=== PATIENT | female | born 1960 | race Caucasian/White ===

== ENCOUNTER 2020-06-18 01:16 | Outpatient (CLI) | payer BC, SELFPAY ==
--- NOTE | 2020-06-18 08:30 | DI.MAMMO_ITS ---
EXAM: MG MAMMO SCREENING CLINICAL HISTORY: screening TECHNIQUE: Bilateral full field digital CC and MLO mammographic images were obtained with 3D tomosyn thesis and utilizing computer aided detection (CAD). COMPARISON: Available for comparison. FINDINGS: Masses/Architectural Distortion: None seen. Microcalcifications: No suspicious pleomorphic-type are seen. Skin Thickening/Nipple Retraction: None. IMPRESSION: 1. No significant interval change with no specific features of malignancy noted. 2. Unless there is more urgent need, screening mammography is recommended, as per [employer] guidelines. BI-RADS Category 1 - Negative Breast Density - Category B - Scattered areas of fibroglandular density A negative radiographic report should not delay biopsy if a dominant or clinically suspicious mass is present. Up to ten percent of cancers are not identified on mammography. A negative report may reinforce clinical impression. Adenosis and dense breasts may obscure an underlying neoplasm. False positive reports average 6 to 10%. Patient will receive a letter notifying them of these results.
== END 2020-06-18 01:36 ==
PROVIDERS: PCP Family Medicine; Visit Provider Nurse Practitioner Family
DX: Z12.31 Encounter for screening mammogram for malignant neoplasm of breast (principal)
CPT/HCPCS: 77063; 77067

== ENCOUNTER 2021-05-28 11:55 | Outpatient (REF) | payer BC, SELFPAY ==
--- NOTE | 2021-05-28 10:15 | PAPFT_PTH ---
PATIENT: Bette Muro LOC: [facility] U#:[id number] AGE/SX: 60/F ROOM: RE05/28/[address]: REX Méndez : 1960 BED: DIS: 05/28/2021 SPEC #: [id number] RECD: 05/28/21 12:49 STATUS: URIAH REQ #: [id number] MICHAEL: 05/28/21 10:[address]: Heavenly Reeder DEPT: [facility] Cytology RECD BY: Tia Rausch ENTERED: 05/28/21 12:50 SP TYPE: PAPFT OTHR DR: Ed Akins Tissues: 1 - CX/ENDOCX FOR PAP SMEARS Procedures: PAP THIN PREP/UVM Screening HPV DNA PROBE Comments: [id number]
== END 2021-05-28 11:56 | disposition home or self-care (01) ==
LOC: LBN 11:55
PROVIDERS: PCP Family Medicine; Visit Provider Nurse Practitioner Family
DX: Z12.4 Encounter for screening for malignant neoplasm of cervix (principal); Z11.51 Encounter for screening for human papillomavirus (HPV)
CPT/HCPCS: 88142; 87624

== ENCOUNTER 2021-06-22 00:49 | Outpatient (CLI) | payer BC, SELFPAY ==
--- NOTE | 2021-06-22 12:00 | DI.MAMMO_ITS ---
Exam(s) MAMMO SCREENING EXAM: MAMMO SCREENING CLINICAL HISTORY: screening TECHNIQUE: Mammograms were interpreted according to the usual protocol including computer analysis w [employer] CAD system, tomosynthesis and C-view imaging. COMPARISON: FINDINGS: The breasts are of moderate density with fairly symmetrical distribution of fibroglandular tissue. N o dominant mass or clumped microcalcification is identified in either breast. The current examinatio n is compared with previous examinations including May 2020 and there has been no gross interval change in appearance in comparison with the prior studies. IMPRESSION: No specific evidence of malignancy at this time. Routine screening examinations are suggested at yea rly intervals in this age group according to the ACS ACR guidelines. BI-RADS Category 1 - Negative Breast Density - Category B - Scattered areas of fibroglandular density
== END 2021-06-22 01:09 ==
PROVIDERS: PCP Family Medicine; Visit Provider Nurse Practitioner Family
DX: Z12.31 Encounter for screening mammogram for malignant neoplasm of breast (principal)
CPT/HCPCS: 77063; 77067

== ENCOUNTER 2021-10-06 04:28 | Outpatient (CLI) | payer BC, SELFPAY ==
[2021-10-06 12:17] LABS: Hemoglobin A1C 5.5 % (<5.7)
[2021-10-06 12:56] LABS: TSH 2.69 uIU/mL (0.36-3.74)
== END 2021-10-06 04:29 | disposition home or self-care (01) ==
LOC: LBO 04:28
PROVIDERS: PCP Nurse Practitioner Family; Visit Provider Nurse Practitioner Family
DX: Z13.1 Encounter for screening for diabetes mellitus (principal); Z13.29 Encounter for screening for other suspected endocrine disorder
CPT/HCPCS: 36415; 83036; 84443

== ENCOUNTER 2022-08-03 03:37 | Outpatient (CLI) | payer BC, SELFPAY ==
--- NOTE | 2022-08-03 08:15 | DI.MAMMO_ITS ---
Exam(s) MAMMO SCREENING EXAM: MAMMO SCREENING CLINICAL HISTORY: screening,Z12.39 TECHNIQUE: Mammograms were interpreted according to the usual protocol including computer analysis w [employer] CAD system, tomosynthesis and C-view imaging. COMPARISON: 2012 through 2020 FINDINGS: The breasts are composed of scattered fibroglandular densities, Breast Density category B. No suspicious masses or suspicious microcalcifications are seen. No skin thickening or abnormal axillary lymph nodes are seen. There has been no significant change from prior exams. IMPRESSION: BI-RADS Category 1, Negative mammogram Yearly screening mammography is recommended. Breast Density - Category B, scattered fibroglandular densities. A negative radiographic report should not delay biopsy if a dominant or clinically suspicious mass is present. Up to ten percent of cancers are not identified on mammography. A negative report may reinforce clinical impression. Adenosis and dense breasts may obscure an underlying neoplasm. False positive reports average 6 to 10%. Patient will receive a letter notifying them of these results.
== END 2022-08-03 03:57 ==
LOC: DI 03:37
PROVIDERS: PCP Nurse Practitioner Family; Visit Provider Nurse Practitioner Women's Health
DX: Z12.31 Encounter for screening mammogram for malignant neoplasm of breast (principal)
CPT/HCPCS: 77063; 77067

== ENCOUNTER 2023-05-03 08:11 | Observation (INO) | payer BC, SELFPAY ==
[2023-05-03] VITALS (36 sets, daily range): BP systolic 92–122; BP diastolic 41–64; PULSE 64–79; RESP 11–21; TEMP 36.7–37.4; O2SAT 94–100; BMI 19.8
--- NOTE | 2023-05-03 08:15 | DI.CT_ITS ---
Exam(s) CT ABDOMEN PELVIS W EXAM: CT ABDOMEN PELVIS W CLINICAL HISTORY: RLQ abd Pain. TECHNIQUE: Imaging Protocol: Axial computed tomography images with coronal and sagittal reformatted images were created and reviewed CONTRAST MATERIAL: Intravenous: Omnipaque-350 100cc Oral: None COMPARISON: No exams were available for comparison FINDINGS: VISUALIZED LUNG BASES: No nodules nor pleural effusions evident. Increased markings in the right natalya g base within the posterior basal segment of the right lower lobe. ABDOMEN: LIVER: There are 2 cysts in the right hepatic lobe and 1 in the left lobe. The largest is in the lef t lobe and measures 1.6 x 1 cm. No dilated intrahepatic ducts. No steatosis. GALLBLADDER/BILIARY: No obvious gallbladder pathology. CBD is not dilated. PANCREAS: No evidence of pancreatic mass nor dilatation of the pancreatic duct. SPLEEN: Spleen is not enlarged. No obvious intrasplenic lesions. Splenic and portal veins are paten t. ADRENALS: There are no significant adrenal masses. KIDNEYS:No cysts evident. No solid renal masses. No calculi nor hydronephrosis.. ABDOMINAL AORTA: Abdominal aorta is not enlarged. LYMPH NODES:There is no retroperitoneal nor paraaortic adenopathy. ABDOMINAL WALL: No evidence of significant anterior abdominal wall nor inguinal hernia. PELVIS: GI: The appendix is grossly abnormal. There is an appendicular lith at the junction of the appendix and tip of the cecum and the appendix is fluid-filled and dilated to 1.5 cm with abundant surrounding CIS fat streaking and some adjacent fluid as well as some fluid in the dependent aspect of the pelvi s. There is no formed abscess at this time. No free air. No gas in the portal venous system.There is no significant sigmoid diverticular disease. LYMPH NODES: There is no intrapelvic nor inguinal adenopathy. REPRODUCTIVE: There are multiple dilated veins on both sides of the uterus which drain into prominent gonadal veins pelvic congestion syndrome. The gonadal veins are not thrombosed. Dilated left gonad al vein drains into the left renal vein. There is no thrombosis of the left renal vein. URINARY BLADDER: Uniformly thickened wall but bladder is collapsed and this may be exaggerated. OSSEOUS: No fractures and no significant osseous lesions. IMPRESSION: 1. Findings are consistent with severe acute appendicitis, as described above. There is high risk fo r and rupture of the inflamed appendix here. 2. Incidentally noted is pelvic congestion syndrome with dilated veins on both sides of the uterus, t hese draining into prominent nonthrombosed gonadal veins. 3. Benign appendix cysts noted. No evidence of hepatic abscess. 4. There is some ascites in the pelvis which is related to the acute appendicitis. Report called by myself to ER provider. RADIATION DOSE DELIVERED: 553.8mGy.cm Total DLP DATA REPOSITORY: All CT scans at this facility are submitted to the National Radiology Data Registry (NRDR) Dose Index Registry (DIR) with the [employer] (ACR). RADIATION OPTIMIZATION: All CT scans at this facility use at least one of these dose optimization te chniques: automated exposure control; mA and/or kV adjustment per patient size (includes targeted exa ms where dose is matched to clinical indication); or iterative reconstruction.
--- NOTE | 2023-05-03 08:27 | ED.GENADUL_ITS ---
Discharge Plan Disposition Patient Disposition: Admit to [facility] Condition: Stable Discharge Details Clinical Impression: Acute appendicitis Attending Provider: Cat Stanton Primary Care Provider: Shabbir Nash ED Provider: Stephany Buenrostro Discharge Data Discharge Date/Time-TO BE ENTERED AT DEPARTURE: 05/03/23 11:49 Medical Decision Making 62-year-old female presents to the ER with a chief complaint of right lower quadrant abdominal pain associated with nausea vomiting and diarrhea which began yesterday. She reports feeling nauseous and continued right lower quadrant pain throughout the day. Nausea seems to be resolved at this time however she is still having some pain. No history of abdominal surgeries. She also notes bloating chills and dizziness. Work-up ordered including CBC CMP lipase UA CT abdomen pelvis. Differential diagnosis includes but limited to appendicitis, ovarian cyst, bowel obstruction, gastroenteritis, UTI. Blood cell count shows elevation leukocytosis 18.68, neutrophils 15.34, sodium i s 130 chloride 96 glucose 140 urinalysis shows 40 ketones small bilirubin 3-5 RBCs. Received call from radiologist CT positive for acute appendicitis appendix is measuring 1.5 cm with free fluid in the cul-de-sac. 0940: Surgery paged. 0949: Spoke with Dr. Stanton, will accept her for surgery. Patient transferred to OR. This text was generated using [employer] dictation system, please disregard any oddities of phrase or misspellings. Medical Records Medical records reviewed: Yes I reviewed the patient's medical records. Imaging Data Radiologic Study: Imaging: CT Scan Radiologist's impression: EXAM: ? CT ABDOMEN ? PELVIS W CLINICAL HISTORY: ? RLQ abd Pain. ? TECHNIQUE:? Imaging Protocol: Axial computed tomography images with coronal and sagittal reformatted images were created and reviewed CONTRAST MATERIAL:? Intravenous: Omnipaque-350? 100cc Oral: None COMPARISON:? No exams were available for comparison FINDINGS: VISUALIZED LUNG BASES: No nodules nor pleural effusions evident.? Increased jessica ings in the right lung base within the posterior basal segment of the right lower lobe. ABDOMEN: LIVER: There are 2 cysts in the right hepatic lobe and 1 in the left lobe.? The largest is in the left lobe and measures 1.6 x 1 cm.? No dilated intrahepatic ducts.? No steatosis. GALLBLADDER/BILIARY: No obvious gallbladder pathology.? CBD is not dilated. PANCREAS: No evidence of pancreatic mass nor dilatation of the pancreatic duct.? SPLEEN: Spleen is not enlarged.? No obvious intrasplenic lesions.? Splenic and portal veins are patent. ADRENALS: There are no significant adrenal masses. KIDNEYS:No cysts evident.? No solid renal masses.? No calculi nor hydronephrosis.. ABDOMINAL AORTA: Abdominal aorta is not enlarged. LYMPH NODES:There is no retroperitoneal nor paraaortic adenopathy. ABDOMINAL WALL: No evidence of significant anterior abdominal wall nor inguinal hernia. PELVIS:? GI: The appendix is grossly abnormal.? There is an appendicular lith at the junction of the appendix and tip of the cecum and the appendix is fluid-filled and dilated to 1.5 cm with abundant surrounding CIS fat streaking and some adjacent fluid as well as some fluid in the dependent aspect of the pelvis.? There is no formed abscess at this time.? No free air.? No gas in the portal venous system.There is no significant sigmoid diverticular disease. LYMPH NODES: There is no intrapelvic nor inguinal adenopathy. REPRODUCTIVE: There are multiple dilated veins on both sides of the uterus which drain into prominent gonadal veins pelvic congestion syndrome.? The gonadal veins are not thrombosed.? Dilated left gonadal vein drains into the left renal vein.? There is no thrombosis of the left renal vein. URINARY BLADDER: Uniformly thickened wall but bladder is collapsed and this may be exaggerated. OSSEOUS: No fractures and no significant osseous lesions. IMPRESSION: 1. Findings are consistent with severe acute appendicitis, as described above.? There is high risk for and rupture of the inflamed appendix here. 2. Incidentally noted is pelvic congestion syndrome with dilated veins on both sides of the uterus, these draining into prominent nonthrombosed gonadal veins. 3. Benign appendix cysts noted.? No evidence of hepatic abscess. 4. There is some ascites in the pelvis which is related to the acute appendicitis. Lab Data Lab results reviewed: Yes I reviewed the patient's lab results. Labs: Laboratory Tests Range/Units 05/03/23 05/03/23 05/03/23 08:25 08:25 08:29 WBC (4.4-10.8) 10^3/uL 18.68 H RBC (3.93-5.22) 10^6/uL 4.14 Hgb (11.2-15.7) g/dL 13.3 Hct (36.0-46.0) % 38.0 MCV (80-95) fL 92 MCH (27.0-33.0) pg 32.1 MCHC (32.0-36.0) % 35.0 RDW (11.7-14.6) % 12.4 Plt Count (130-400) 10^3/uL 324 MPV (8.0-11.0) fL 9.1 Immature Gran % 0.5 Neutrophils % 82.1 Lymphocytes % 7.0 Monocytes % 10.1 Eosinophils % 0.0 Basophils % 0.3 Nucleated RBC % (0.0-0.3) % 0.0 Absolute Neutrophils (1.2-6.7) 10^3/uL 15.34 H Absolute Lymphocytes (1.2-3.4) 10^3/uL 1.31 Absolute Monocytes (0.1-0.8) 10^3/uL 1.89 H Absolute Eosinophils (0.0-0.7) 10^3/uL 0.00 Absolute Basophils (0.0-0.2) 10^3/uL 0.06 RBC Morphology Normal Sodium (136-145) mmol/L 130 L Potassium (3.5-5.1) mmol/L 3.8 Chloride (98-107) mmol/L 96 L Carbon Dioxide (21.0-32.0) mmol/L 25.0 Anion Gap (3-11) mmol/L 9.0 BUN (7-18) mg/dL 11 Creatinine (0.55-1.02) mg/dL 0.7 Est GFR (CKD-EPI 2020) (mL/min/1.73m2) 97.72 Glucose (74-106) mg/dL 140 H Calcium (8.5-10.1) mg/dL 9.3 Magnesium (1.8-2.4) mg/dL 1.8 Total Bilirubin (0.2-1.0) mg/dL 0.9 AST (15-37) U/L 22 ALT (14-59) U/L 27 Alkaline Phosphatase (46-116) U/L 76 Total Protein (6.4-8.2) g/dL 7.5 Albumin (3.4-5.0) g/dL 3.6 Lipase (16-77) U/L 29 Urine Color (Yellow) Yellow Urine Clarity (Clear) Clear Urine pH (5-8) 6.5 Ur Specific Allyn (1.005-1.025) >= 1.030 H Urine Protein (Negative) mg/dL 100 H Urine Ketones (Negative) mg/dL 40 H Urine Blood (Negative) Small H Urine Nitrite (Negative) Negative Urine Bilirubin (Negative) Small H Urine Urobilinogen (Up to 0.2) mg/dL 0.2 Ur Leukocyte Esterase (Negative) Negative Urine RBC (0-2) HPF 3-5 H Urine WBC (0-5) HPF 0-2 Ur Epithelial Cells (Negative) HPF Rare Urine Crystals (Negative) HPF Few Amorphous Urine Bacteria (Negative) HPF Negative Urine Casts (Negative) LPF Negative Urine Mucus (Negative) Trace Ur Culture Indicated? No Urine Glucose (Negative) mg/dL Negative HPI General Mode of arrival: ambulatory . Date/Time Provider Initiated Documentation: 05/03/23 08:16 . Limitations to Documentation: no limitations . Information obtained by: patient, RN notes reviewed and old records reviewed . HPI Narrative: 62-year-old female presents to the ER with a chief complaint of right lower quadrant abdominal pain associated with nausea vomiting and diarrhea which began yesterday. She reports feeling nauseous and continued right lower quadrant pain throughout the day. Nausea seems to be resolved at this time however she is still having some pain. No history of abdominal surgeries. She also notes bloating chills and dizziness. Related Data Home Medications Medication Instructions Recorded Confirmed calcium carb,cit 300 mg-D3 200 1 ea PO DAILY 01/18/16 05/03/23 unit-min no.34-genistein 13.5 mg tablet (Citracal Plus Bone Density Builder) cholecalciferol (vitamin D3) 50 2,000 unit PO DAILY 01/18/16 05/03/23 mcg (2,000 unit) capsule (Vitamin D3) flaxseed oil 1,000 mg capsule 1,000 mg PO DAILY 01/18/16 05/03/23 multivitamin (Daily Multi-Vitamin 1 ea PO DAILY 01/18/16 05/03/23 tablet) wheat dextrin 3 gram/3.8 gram oral 236 g PO DAILY 01/23/17 05/03/23 powder (Benefiber Sugar Free (dextrin)) glucosamine sulfate 1,000 mg 1,000 mg PO DAILY 05/26/20 05/03/23 capsule epinephrine 0.3 mg/0.3 mL 0.3 mg IM ONCE 09/22/21 05/03/23 injection, auto-injector (EpiPen 2-Carlin) Allergies Allergy/AdvReac Type Severity Reaction Status Date / Time Duck Eggs Allergy Severe Wheezing Uncoded 05/03/23 08:20 General Stated Complaint: Abd Prob ADAMA: 3 Review of Systems All systems reviewed & are unremarkable except as noted in HPI and below Gastrointestinal Gastrointestinal: Reports abdominal pain, Reports bloating, Reports diarrhea, Reports nausea and Reports vomiting Genitourinary Genitourinary: Denies difficulty voiding PFSH All Active Problems (Updated 05/03/23 @ 09:50 by Stephany Buenrostro NP) Acute appendicitis (Acute) Postmenopausal (Acute) Basal cell carcinoma of skin (Acute) left shoulder Medical History Cervical polyp (01/26/18) seasonal affective disorder usually winter months. Rx over winter x 1 no issues at this time Surgical History History of tubal ligation (~07/31/94) Family History Mother , 83 Osteoporosis Lung cancer Father , 68 Diabetes Heart disease Hyperlipidemia Hypertension Stroke Substance use disorder Sister Alcohol use disorder Sister Diabetes Brother Alcohol use disorder Brother No problems noted. Brother Alcohol use disorder Depression Brother Heart disease Diabetes Depression Son Hypoglycemia Daughter Depression Social History Smoking/Tobacco Use Status: Never Second Hand Exposure: Yes Smoking risk assessment performed?: Yes Alcohol Intake: current Alcohol Intake frequency: a few times a week Alcohol type: beer and wine Substance use type: does not use Caregiver/Support person: No Household members: significant other Housing: apartment Communication Needs: Corrective Lenses Do you need help understanding health information?: Rarely Pets and animals: Yes Pets and animals: cat(s) Sexually active: Yes Do you think of yourself as: straight/heterosexual Current gender identity: female What is your relationship status?: living with partner How often do you talk on the phone with friends or family?: three or more times per week How often do you get together with friends or relatives?: three or more times per week How often do you attend mandaen or anglican services?: 1-3 times per year Do you belong to any clubs or organized social groups?: yes Panel score (0-1 are the most socially isolated patients): 3 What type of physical activity do you participate in: walking, weight lifting and running Duration: 60-90 minutes/day Frequency: 3-4 times per week Victorina/Jehovah'S Witness: Spiritual Special victorina needs: No Seatbelt use: always Helmet use: Yes Helmet use: always Drive intox or ride w/intox experienced truck driver: No Do you feel safe at home: Yes Do you feel safe in your relationship?: Yes Female Reproductive History Menstrual Menopause type: natural (2018) History History 2 Para 2 Hx # Term Pregnancies Multiple births Hx # Pregnancies Ectopic pregnancies AB induced Hx Number of Living Children AB spontaneous Exam Narrative Exam Narrative: Constitutional: Alert and oriented x3. Appears stated age. Normal body habitus. Head: Normocephalic, no trauma. Eyes: Pupils PERRL, Red reflex noted, EOM's intact. Eyelids symmetrical without lesions, discharge, or swelling. ENT: Bilateral TM's WNL, External ear normal to inspection, no mastoid TTP, swelling, or erythema, Nasal turbinates WNL, no nasal discharge. Normal dentition, Posterior pharynx WNL, no exudate. Chest: RRR, Normal S1, S2, distal pulses intact. Resp: Lungs clear to auscultation bilaterally, no wheezes, rales, or rhonchi. Abdomen: Soft, non-distended, Normoactive bowel sounds all 4 quads. Tenderness right lower quadrant with palpation. Musculoskeletal: Normal gait, 5/5 strength to all four extremities. Skin: No suspicious rashes or lesions. Capillary refill less than 2 sec. Neurologic: Cranial nerves II-XII intact. Alert and oriented x 3. Motor: No defi cits noted. Sensory: Intact bilaterally all 4 extremities. Hematologic/Lymphatic: No ecchymosis, no lymphadenopathy. Course Vital Signs Vital signs: Vital Signs Temperature 37.3 C 05/03/23 08:14 Pulse 68 05/03/23 08:14 Respiratory Rate 16 05/03/23 08:14 Blood Pressure 122/53 L 05/03/23 08:14 Pulse Oximetry 99 05/03/23 08:14 Temperature 37.3 C 05/03/23 08:14 Temperature Source Oral 05/03/23 08:14 Pulse 68 05/03/23 08:14 Respiratory Rate 16 05/03/23 08:14 Respiratory Effort Normal, Non-Labored 05/03/23 08:17 Blood Pressure 122/53 L 05/03/23 08:14 Pulse Oximetry 99 05/03/23 08:14 Oxygen Delivery Method Room Air 05/03/23 08:14 Oxygen Flow Rate 0 05/03/23 08:14 Pain Level 4 05/03/23 08:14 PAWSS Have you Been Recently Intoxicated or Drunk Within the Last 30 days?: No Have you Ever Experienced Previous Episodes of Alcohol Withdrawal?: No Have you ever Experienced Withdrawal Seizures?: No Have you ever Experienced Delirium Tremens(DT)s?: No Have you ever undergone Alcohol Rehabilitation Treatment (i.e, inpt ot outpatient treatment programs)?: No Have you ever Experienced Blackouts?: No Have you ever Combined Alcohol with other Downers within the last 90 days?: No Have you ever Combined Alcohol with any other Substance of Abuse during the last 90 days?: No Result: 0
[2023-05-03 08:35] LABS: Abs Immature Grans 0.09 10^3/uL (0.0-0.06); Basophils % 0.3; HGB 13.3 g/dL (11.2-15.7); Immature Grans % 0.5; MCH 32.1 pg (27.0-33.0); MCV 92 fL (80-95); MPV 9.1 fL (8.0-11.0); Monocytes % 10.1; Neutrophils % 82.1; Platelet Count 324 10^3/uL (130-400); RBC 4.14 10^6/uL (3.93-5.22); RDW 12.4 % (11.7-14.6); WBC 18.68 10^3/uL (4.4-10.8)
[2023-05-03 08:37] LABS: Absolute Basophil Count 0.06 10^3/uL (0.0-0.2); Absolute Lymphocyte Count 1.31 10^3/uL (1.2-3.4); Absolute Monocyte Count 1.89 10^3/uL (0.1-0.8); Absolute Neutrophil Count 15.34 10^3/uL (1.2-6.7)
[2023-05-03 08:44] LABS: Bilirubin Small (Negative); Blood Small (Negative); Clarity Clear (Clear); Glucose Negative (Negative); Ketones 40 mg/dL (Negative); Leukocyte Esterase Negative (Negative); Nitrite Negative (Negative); Specific Gravity >= 1.030 (1.005-1.025); Urobilinogen 0.2 mg/dL (Up to 0.2); pH 6.5 (5-8)
[2023-05-03 08:48] LABS: ALT 27 U/L (14-59); AST 22 U/L (15-37); Albumin 3.6 g/dL (3.4-5.0); Alkaline Phosphatase 76 U/L (46-116); BUN 11 mg/dL (7-18); Bilirubin, Total 0.9 mg/dL (0.2-1.0); CREATININE 0.7 mg/dL (0.55-1.02); Calcium 9.3 mg/dL (8.5-10.1); Chloride 96 mmol/L (98-107); Estimated GFR 97.72 (mL/min/1.73m2); Glucose 140 mg/dL (74-106); Lipase 29 U/L (16-77); Magnesium 1.8 mg/dL (1.8-2.4); Potassium 3.8 mmol/L (3.5-5.1); Sodium 130 mmol/L (136-145); Total Protein 7.5 g/dL (6.4-8.2)
[2023-05-03 08:50] LABS: Bacteria Negative HPF (Negative); C & S Indicated? No; Casts Negative LPF (Negative); Crystals Few Amorphous HPF (Negative); Epithelial Cells Rare HPF (Negative); Mucus Trace (Negative); WBC 0-2 HPF (0-5)
[2023-05-03 08:52] LABS: Diff Comment Agrees w/ Instrument; RBC Morphology Normal
[2023-05-03] MEDS: Normal Saline 1,000 ML 1000 ML IV (08:53)
[2023-05-03] MEDS: Normal Saline - Diluent 50 ML VIAL IJ (09:11)
[2023-05-03] MEDS: Omnipaque 350 MG/ML 500 ML BTL-Imaging package IJ (09:11)
[2023-05-03 10:18] LABS: Source Nasal/Nares
--- NOTE | 2023-05-03 10:35 | W.PREOPHP ---
Documented by User: CHRIST Cavlo 05/03/23 10:58 Assessment and Plan Assessment and plan (1) Acute appendicitis: Status: Acute Assessment and plan: Patient with acute appendicitis and leukocytosis Jassi NPO Pain is currently well controlled, following receiving morphine. Discussed the surgical procedure of laparoscopic appendectomy. Discussed the potential risks and benefits to include bleeding, abscess, injury to the bowel etc. All questions were answered to patient satisfaction and she wishes to proceed with laparoscopic appendectomy. P// Laparoscopic Appendectomy History of Present Illness History of Present Illness Chief Complaint: Acute Appendicitis Narrative: 62 y/o seasonal affective disorder presented to the ER with complaints of nausea, vomiting, abdominal pain, fevers and chills. She was noted to have leukocytosis and CT scan was remarkable for acute appendicitis. Denies chest pain, palpitations, dyspnea or dyspnea with exertion. Denies personal or family history of adverse reactions to anesthesia. Denies any history of [place], stroke, seizures, bleeding or clotting disorders. Denies having any implanted metal. Denies any history of chemotherapy or radiation. PFSH All Active Problems (Updated 05/03/23 @ 09:50 by Stephany Buenrostro NP) Acute appendicitis (Acute) Postmenopausal (Acute) Basal cell carcinoma of skin (Acute) left shoulder Medical History Cervical polyp (01/26/18) seasonal affective disorder usually winter months. Rx over winter x 1 no issues at this time Surgical History History of tubal ligation (~07/31/94) Family History Mother , 83 Osteoporosis Lung cancer Father , 68 Diabetes Heart disease Hyperlipidemia Hypertension Stroke Substance use disorder Sister Alcohol use disorder Sister Diabetes Brother Alcohol use disorder Brother No problems noted. Brother Alcohol use disorder Depression Brother Heart disease Diabetes Depression Son Hypoglycemia Daughter Depression Social History Smoking/Tobacco Use Status: Never Second Hand Exposure: Yes Smoking risk assessment performed?: Yes Alcohol Intake: current Alcohol Intake frequency: a few times a week Alcohol type: beer and wine Substance use type: does not use Caregiver/Support person: No Household members: significant other Housing: apartment Communication Needs: Corrective Lenses Do you need help understanding health information?: Rarely Pets and animals: Yes Pets and animals: cat(s) Sexually active: Yes Do you think of yourself as: straight/heterosexual Current gender identity: female What is your relationship status?: living with partner How often do you talk on the phone with friends or family?: three or more times per week How often do you get together with friends or relatives?: three or more times per week How often do you attend muslim or denominational services?: 1-3 times per year Do you belong to any clubs or organized social groups?: yes Panel score (0-1 are the most socially isolated patients): 3 What type of physical activity do you participate in: walking, weight lifting and running Duration: 60-90 minutes/day Frequency: 3-4 times per week Victorina/Jewish: Spiritual Special victorina needs: No Seatbelt use: always Helmet use: Yes Helmet use: always Drive intox or ride w/intox 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 Do you feel safe at home: Yes Do you feel safe in your relationship?: Yes Female Reproductive History Menstrual Menopause type: natural (2018) History History 2 Para 2 Hx # Term Pregnancies Multiple births Hx # Pregnancies Ectopic pregnancies AB induced Hx Number of Living Children AB spontaneous Meds Allergies and Home Medications Allergies Allergy/AdvReac Type Severity Reaction Status Date / Time Duck Eggs Allergy Severe Wheezing Uncoded 05/03/23 08:20 Home Medications Medication Instructions Recorded Confirmed Type calcium carb,cit 300 mg-D3 200 1 ea PO DAILY 01/18/16 05/03/23 History unit-min no.34-genistein 13.5 mg tablet (Citracal Plus Bone Density Builder) cholecalciferol (vitamin D3) 50 2,000 unit PO DAILY 01/18/16 05/03/23 History mcg (2,000 unit) capsule (Vitamin D3) flaxseed oil 1,000 mg capsule 1,000 mg PO DAILY 01/18/16 05/03/23 History multivitamin (Daily Multi-Vitamin 1 ea PO DAILY 01/18/16 05/03/23 History tablet) wheat dextrin 3 gram/3.8 gram oral 236 g PO DAILY 01/23/17 05/03/23 History powder (Benefiber Sugar Free (dextrin)) glucosamine sulfate 1,000 mg 1,000 mg PO DAILY 05/26/20 05/03/23 History capsule epinephrine 0.3 mg/0.3 mL 0.3 mg IM ONCE 09/22/21 05/03/23 History injection, auto-injector (EpiPen 2-Carlin) Exam Const General: cooperative, healthy appearing and acute distress Orientation: alert and oriented x3 Resp Effort & Inspection: normal respiratory effort, no audible wheezes and no cough Auscultation: clear to auscultation bilaterally GI Inspection: normal to inspection Palpation: soft, guarding and tender in the RLQ Auscultation: normal bowel sounds Results Labs 05/03/23 08:25 05/03/23 08:25 Labs: Laboratory Results - last 24 hr 05/03/23 05/03/23 05/03/23 08:25 08:25 08:29 WBC 18.68 H RBC 4.14 Hgb 13.3 Hct 38.0 MCV 92 MCH 32.1 MCHC 35.0 RDW 12.4 Plt Count 324 MPV 9.1 Immature Gran % 0.5 Neutrophils % 82.1 Lymphocytes % 7.0 Monocytes % 10.1 Eosinophils % 0.0 Basophils % 0.3 Nucleated RBC % 0.0 Absolute Neutrophils 15.34 H Absolute Lymphocytes 1.31 Absolute Monocytes 1.89 H Absolute Eosinophils 0.00 Absolute Basophils 0.06 RBC Morphology Normal Sodium 130 L Potassium 3.8 Chloride 96 L Carbon Dioxide 25.0 Anion Gap 9.0 BUN 11 Creatinine 0.7 Est GFR (CKD-EPI 2020) 97.72 Glucose 140 H Calcium 9.3 Magnesium 1.8 Total Bilirubin 0.9 AST 22 ALT 27 Alkaline Phosphatase 76 Total Protein 7.5 Albumin 3.6 Lipase 29 Urine Color Yellow Urine Clarity Clear Urine pH 6.5 Ur Specific [place] >= 1.030 H Urine Protein 100 H Urine Ketones 40 H Urine Blood Small H Urine Nitrite Negative Urine Bilirubin Small H Urine Urobilinogen 0.2 Ur Leukocyte Esterase Negative Urine RBC 3-5 H Urine WBC 0-2 Ur Epithelial Cells Rare Urine Crystals Few Amorphous Urine Bacteria Negative Urine Casts Negative Urine Mucus Trace Ur Culture Indicated? No Urine Glucose Negative COVID-19 Source 05/03/23 10:15 WBC RBC Hgb Hct MCV MCH MCHC RDW Plt Count MPV Immature Gran % Neutrophils % Lymphocytes % Monocytes % Eosinophils % Basophils % Nucleated RBC % Absolute Neutrophils Absolute Lymphocytes Absolute Monocytes Absolute Eosinophils Absolute Basophils RBC Morphology Sodium Potassium Chloride Carbon Dioxide Anion Gap BUN Creatinine Est GFR (CKD-EPI 2020) Glucose Calcium Magnesium Total Bilirubin AST ALT Alkaline Phosphatase Total Protein Albumin Lipase Urine Color Urine Clarity Urine pH Ur Specific [place] Urine Protein Urine Ketones Urine Blood Urine Nitrite Urine Bilirubin Urine Urobilinogen Ur Leukocyte Esterase Urine RBC Urine WBC Ur Epithelial Cells Urine Crystals Urine Bacteria Urine Casts Urine Mucus Ur Culture Indicated? Urine Glucose COVID-19 Source Nasal/Nares Last Vital Signs Temp 37.3 C 05/03/23 08:32 Pulse 68 05/03/23 08:32 Resp 16 05/03/23 08:32 BP 122/53 L 05/03/23 08:32 Pulse Ox 100 05/03/23 09:20 Documented by User: Cat Stanton MD 05/03/23 12:28 Assessment and Plan Assessment and plan (1) Acute appendicitis: Status: Acute Assessment and plan: Patient with acute appendicitis and leukocytosis Zosyn NPO Pain is currently well controlled, following receiving morphine. Discussed the surgical procedure of laparoscopic appendectomy. Discussed the potential risks and benefits to include bleeding, abscess, injury to the bowel etc. All questions were answered to patient satisfaction and she wishes to proceed with laparoscopic appendectomy. P// Laparoscopic Appendectomy Patient seen and examined in PACU I discussed the procedure in detail as well as the potential for an open procedure. We reviewed the risks, benefits and complications. Complications include but are not limited to bleeding, pain, infection, injury to large or small intestine, injury to bladder, hypotension, bradycardia, hypoxemia, wound dehisence, leak from the staple line and abscess formation. PAtient has had a chance to ask questions and agrees to proceed. Proceed with Lap. Appendectomy possible open. Review of Systems All systems reviewed & are unremarkable except as noted in HPI and below PFSH All Active Problems (Updated 05/03/23 @ 09:50 by Stephany Buenrostro NP) Acute appendicitis (Acute) Postmenopausal (Acute) Basal cell carcinoma of skin (Acute) left shoulder Medical History Cervical polyp (01/26/18) seasonal affective disorder usually winter months. Rx over winter x 1 no issues at this time Surgical History History of tubal ligation (~07/31/94) Family History Mother , 83 Osteoporosis Lung cancer Father , 68 Diabetes Heart disease Hyperlipidemia Hypertension Stroke Substance use disorder Sister Alcohol use disorder Sister Diabetes Brother Alcohol use disorder Brother No problems noted. Brother Alcohol use disorder Depression Brother Heart disease Diabetes Depression Son Hypoglycemia Daughter Depression Social History Smoking/Tobacco Use Status: Never Second Hand Exposure: Yes Smoking risk assessment performed?: Yes Alcohol Intake: current Alcohol Intake frequency: a few times a week Alcohol type: beer and wine Substance use type: does not use Caregiver/Support person: No Household members: significant other Housing: apartment Communication Needs: Corrective Lenses Do you need help understanding health information?: Rarely Pets and animals: Yes Pets and animals: cat(s) Sexually active: Yes Do you think of yourself as: straight/heterosexual Current gender identity: female What is your relationship status?: living with partner How often do you talk on the phone with friends or family?: three or more times per week How often do you get together with friends or relatives?: three or more times per week How often do you attend muslim or denominational services?: 1-3 times per year Do you belong to any clubs or organized social groups?: yes Panel score (0-1 are the most socially isolated patients): 3 What type of physical activity do you participate in: walking, weight lifting and running Duration: 60-90 minutes/day Frequency: 3-4 times per week Victorina/Jewish: Spiritual Special victorina needs: No Seatbelt use: always Helmet use: Yes Helmet use: always Drive intox or ride w/intox 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 Do you feel safe at home: Yes Do you feel safe in your relationship?: Yes History History 2 Para 2 Hx # Term Pregnancies Multiple births Hx # Pregnancies Ectopic pregnancies AB induced Hx Number of Living Children AB spontaneous Meds Allergies and Home Medications Allergies Allergy/AdvReac Type Severity Reaction Status Date / Time Duck Eggs Allergy Severe Wheezing Uncoded 05/03/23 08:20 Home Medications Medication Instructions Recorded Confirmed Type calcium carb,cit 300 mg-D3 200 1 ea PO DAILY 01/18/16 05/03/23 History unit-min no.34-genistein 13.5 mg tablet (Citracal Plus Bone Density Builder) cholecalciferol (vitamin D3) 50 2,000 unit PO DAILY 01/18/16 05/03/23 History mcg (2,000 unit) capsule (Vitamin D3) flaxseed oil 1,000 mg capsule 1,000 mg PO DAILY 01/18/16 05/03/23 History multivitamin (Daily Multi-Vitamin 1 ea PO DAILY 01/18/16 05/03/23 History tablet) wheat dextrin 3 gram/3.8 gram oral 236 g PO DAILY 01/23/17 05/03/23 History powder (Benefiber Sugar Free (dextrin)) glucosamine sulfate 1,000 mg 1,000 mg PO DAILY 05/26/20 05/03/23 History capsule epinephrine 0.3 mg/0.3 mL 0.3 mg IM ONCE 09/22/21 05/03/23 History injection, auto-injector (EpiPen 2-Carlin) Results Labs 05/03/23 08:25 05/03/23 08:25
--- NOTE | 2023-05-03 10:40 | ANES.PREOP_ITS ---
General Info Date of Service Date Performed: 05/03/23 Height: 5 ft 7 in Weight: 57.606 kg Body Mass Index (BMI): 19.8 Surgical Procedure: Operation Date: 05/03/23 11:10 Proposed Procedure Side Surgeon p Appendectomy Laparoscopic Cat Stanton MD Meds Allergies and Home Medications Allergies Allergy/AdvReac Type Severity Reaction Status Date / Time Duck Eggs Allergy Severe Wheezing Uncoded 05/03/23 08:20 Home Medication Medication Instructions Recorded calcium carb,cit 300 mg-D3 200 1 ea PO DAILY 01/18/16 unit-min no.34-genistein 13.5 mg tablet (Citracal Plus Bone Density Builder) cholecalciferol (vitamin D3) 50 2,000 unit PO DAILY 01/18/16 mcg (2,000 unit) capsule (Vitamin D3) flaxseed oil 1,000 mg capsule 1,000 mg PO DAILY 01/18/16 multivitamin (Daily Multi-Vitamin 1 ea PO DAILY 01/18/16 tablet) wheat dextrin 3 gram/3.8 gram oral 236 g PO DAILY 01/23/17 powder (Benefiber Sugar Free (dextrin)) glucosamine sulfate 1,000 mg 1,000 mg PO DAILY 05/26/20 capsule epinephrine 0.3 mg/0.3 mL 0.3 mg IM ONCE 09/22/21 injection, auto-injector (EpiPen 2-Carlin) Current Visit Medications: Current Medications Generic Name Dose Route Start Last Admin Trade Name Freq PRN Reason Stop Dose Admin IV Miscellaneous Supplies 1 each 05/03/23 08:30 Iv Access-Emergency Dept IV DIRECTED [facility] Iohexol 500 ml 05/03/23 09:15 05/03/23 09:11 Omnipaque 350 Mg/Ml 500 Ml Btl-Imaging Package IJ 06/02/23 23:59 100 ml DIRECTED [facility] Administration Sodium Chloride 0 ml 05/03/23 08:21 Normal Saline Flush 10 Ml Syr IVP PRN PRN Sodium Chloride 50 ml 05/03/23 09:15 05/03/23 09:11 Normal Saline - Diluent 50 Ml Vial IJ 50 ml .FOR DI USE [facility] Administration PFSH Active Problems Active Problems: Problem Status Onset Code Acute appendicitis K35.80 Postmenopausal Z78.0 Basal cell carcinoma of skin C44.91 Medical History Medical History Cervical polyp (01/26/18) seasonal affective disorder usually winter months. Rx over winter x 1 no issues at this time Surgical History Surgical History History of tubal ligation (~07/31/94) Tobacco Smoking/Tobacco Use Status: Never Passive smoking exposure: Yes Second hand exposure: Yes Alcohol Alcohol Intake: current Alcohol intake frequency: a few times a week Alcohol type: beer and wine Substance Use Substance use type: does not use Prental History History 2 Para 2 Hx # Term Pregnancies Multiple births Hx # Pregnancies Ectopic pregnancies AB induced Hx Number of Living Children AB spontaneous Vital Signs and Lab Results Vital Signs Most Recent Vital Signs in EMR: Most Recent Vital Signs Temp Pulse Resp BP Pulse Ox 37.3 C 68 16 122/53 L 100 05/03/23 08:32 05/03/23 08:32 05/03/23 08:32 05/03/23 08:32 05/03/23 09:20 Lab Results 05/03/23 08:25 05/03/23 08:25 Blood Type / Crossmatch: No Data to Display Complete Blood Count: White Blood Count 18.68 10^3/uL (4.4-10.8) H 05/03/23 08:25 Red Blood Count 4.14 10^6/uL (3.93-5.22) 05/03/23 08:25 Hemoglobin 13.3 g/dL (11.2-15.7) 05/03/23 08:25 Hematocrit 38.0 % (36.0-46.0) 05/03/23 08:25 Platelet Count 324 10^3/uL (130-400) 05/03/23 08:25 Complete Metabolic Panel: Sodium 130 mmol/L (136-145) L 05/03/23 08:25 Potassium 3.8 mmol/L (3.5-5.1) 05/03/23 08:25 Chloride 96 mmol/L (98-107) L 05/03/23 08:25 Carbon Dioxide 25.0 mmol/L (21.0-32.0) 05/03/23 08:25 BUN 11 mg/dL (7-18) 05/03/23 08:25 Creatinine 0.7 mg/dL (0.55-1.02) 05/03/23 08:25 Est GFR (CKD-EPI 2020) 97.72 (mL/min/1.73m2) 05/03/23 08:25 Magnesium 1.8 mg/dL (1.8-2.4) 05/03/23 08:25 Calcium 9.3 mg/dL (8.5-10.1) 05/03/23 08:25 Albumin 3.6 g/dL (3.4-5.0) 05/03/23 08:25 Glucose 140 mg/dL (74-106) H 05/03/23 08:25 Liver Function Panel: Alanine Aminotransferase (ALT/SGPT) 27 U/L (14-59) 05/03/23 08: 25 Aspartate Amino Transf (AST/SGOT) 22 U/L (15-37) 05/03/23 08:25 Coagulation Panel: No Data to Display Cardiac Panel: No Data to Display Arterial Blood Gas: No Data to Display Venous Blood Gas: No Data to Display Pancreas Panel: Lipase 29 U/L (16-77) 05/03/23 08:25 Thyroid Panel: No Data to Display Infectious Disease: Coronavirus (COVID-19)(PCR) Negative (Negative) 05/03/23 10:15 Coronavirus 2019 Source Nasal/Nares 05/03/23 10:15 Blood Cultures: No Data to Display Toxicology Panel: No Data to Display Anesthesia Assessment and Plan Anesthesia History Personal History: PONV Family History: No Family History of Anesthesia Complications Exercise Tolerance Exercise Tolerance: Metabolic Equivalents>4 Pertinent Negatives Pertinent Negatives: No Symptoms of GERD, No Major Cardiovascular Symptoms or Complaints, No Major Pulmonary Symptoms or Complaints and No History of CVA/TIA Cardiac & Pulmonary Exam Cardiac Exam: Normal S1/S2 Heart Sounds Pulmonary Exam: Clear Bilateral Breath Sounds Implantable Cardiac Device Does patient have a Pacemaker or an ICD?: No Airway Exam Known Difficult Airway: No Mallampati Class: 2 Mouth Opening: Normal (> 3cm) Thyromental Distance: Greater than 3 cm Neck Range of Motion: Full ROM Neck Circumference: Normal Teeth Condition: Normal Dentition ([place]) ASA Classification ASA Score: ASA 2 Emergency Case?: Yes NPO Status NPO Status: NPO Clears >2 hours, Solids >8 hours Anesthesia Plan Resuscitation Status: Full Code Anesthesia Technique: General Anesthesia Airway Planned: Endotracheal Tube Monitors Used: Standard Monitors
[2023-05-03] MEDS: Normal Saline 500 ML IV (10:45)
[2023-05-03 10:55] LABS: COVID-19 PCR Negative (Negative)
[2023-05-03] MEDS: Ondansetron 4 MG/2 ML VIAL IVP (10:56)
[2023-05-03] MEDS: PIPERACILLIN/TAZO 3.375 GM in Normal Saline 50 ML IVPB ×3 (11:17→23:34)
--- NOTE | 2023-05-03 12:54 | APP_PTH ---
PATIENT: Bette Muro LOC: [id number]#:[id number] AGE/SX: 62/F ROOM: RE05/03/[address]: Cat Stanton MD : 1960 BED: A DIS: 05/05/2023 SPEC #: [id number] RECD: 05/03/23 17:08 STATUS: URIAH RE #: [id number] MICHAEL: 05/03/23 12:[address]: Cat Stanton DEPT: Surgical Specimen RECD BY: Tia Rausch ENTERED: 05/03/23 17:09 SP TYPE: Appendix OTHR DR: Shabbir Nash, LEATHA Tissues: 1 - APPENDIX NOT INCIDENTAL Procedures: GROSS AND MICRO LEVEL 3 Comments: [id number]
[2023-05-03] MEDS: Bupivacaine 0.25% Pres-Free 30 ML VIAL (13:01)
[2023-05-03] MEDS: Lactated Ringers 1,000 ML 30 ML IV (13:20)
--- NOTE | 2023-05-03 13:49 | W.PM.OP ---
Date of service: 05/03/23 Time of Service: 13:49 Operative Note Operative Note DATE OF PROCEDURE: 05/03/23 PRE-OP DIAGNOSIS: Acute appendicitis POST-OP DIAGNOSIS: other (acute, necrotic appendicitis) PROCEDURE: Laparoscopic appendectomy SURGEON: Cat Stanton FRONT OFFICE COORDINATOR: Jasmyn Garcia ANESTHESIA TYPE: General:No Airway Refer to Anesthesia Record ESTIMATED BLOOD LOSS: 50 PATHOLOGY: other (appendix) COMPLICATIONS: None Patient was transported to: PACU Patient's condition: stable Indications: Ms Muro is a pleasant 62 year old female who came to our ER with about 36 hours [address] abdominal pain. CT scan revealed appendicitis with some free fluid. I discussed laparoscopic appendectomy with her as well as reviewed the potential complications. after our covernsation she seemed to have a good understanding of the procedure and the possible complications and wished to proceed. Procedure Description: After informed consent was obtained the patient was taken to the operating room placed in the supine position, SCDs were applied as well as monitors. The patient was then placed under general anesthesia and intubated without any difficulty. At this point the abdomen was prepped and draped in a sterile surgical fashion with chlorhexidine. A timeout was done and the patient's name, date of , operation to be performed, DVT prophylaxis, antibiotic given, and fire risk was assessed. 0.25% Bupivocaine was injected into the dermis just below the umbilicus. A small 5 mm incision was made with an 11 blade. The subcutaneous tissue was dissected down to the fascia with a hemostat. The fascia was grasped with cockers and then using a Visiport a 5 mm port was placed under direct visualization into the abdomen. The abdomen was insufflated. Local anesthetic was then injected just above the pubic symphysis just to the right of midline. A small 5 mm incision was made with an 11 blade and another 5 mm port was placed under direct visualization into the abdomen. The local anesthetic was then injected in the left lower quadrant area and a 12 mm incision was made with an 11 blade. A 12 mm port was then placed under direct visualization. The cecum was gently grasped and the appendix was identified. The appendix looked inflammed and thickened except at the neck. No purulent fluid was noted. There were 2 areas of necrosis noted. The appendix was grasped at the neck and pulled up slightly allowing me to visualize the junction with the cecum. Using the laparoscopic LigaSure the mesoappendix was slowly transected. The appendix was then gently dissected away from the cecum using a blunt instrument and the ligasure. Once the appendix had been dissected away from the cecum along the right gutter, the appendix was then transected at the junction with the cecum using a straight stapler. The appendix was placed into an Endo Catch bag and removed through the 12 mm port site. The port was placed back into the abdomen and the staple line was identified. No bleeding was noted. The transected mesentery was identified and no bleeding was noted. The abdomen was washed with 1 L of Saline. The effluent was clear at the end. 10 cc of local was then injected above the liver bed to help with postoperative shoulder pain. The 2 5 mm ports were then removed under direct visualization and no bleeding was noted from the fascia. The insufflation was stopped and the 12 mm port was removed. The 12 mm port site fascia was closed with a 0 Vicryl [id number] suture. The skin was then closed with 4-0 Vicryl. The skin was cleaned and dried and skin affix was applied. The patient was woken up, extubated and taken back to recovery room in stable condition. There were no immediate complications. Sponge, instrument and needle counts were correct at the end of the case x2.
--- NOTE | 2023-05-03 14:05 | W.ANESPOSTOP ---
Postoperative Evaluation Date, Time and Location Date Performed: 05/03/23 Time Performed: 14:05 Patient Location: PACU Vital Signs Most Recent Imported Vital Signs: Most Recent Vital Signs Temp Pulse Resp BP Pulse Ox 37.2 C 65 17 103/50 L 97 05/03/23 13:36 05/03/23 13:50 05/03/23 13:50 05/03/23 13:50 05/03/23 13:50 Pain Score Most Recent Pain Score: Most Recent Pain Score Pain Level 0 05/03/23 13:50 Assessment Mental Status: Awake (Alert & Oriented to Patient Baseline) Airway and Respiratory Function: Patent airway with normal (patient baseline) respiratory exam Cardiovascular Function: Hemodynamically Stable Hydration Status: Adequately Hydrated Nausea & Vomiting: No Nausea or Vomiting Pain: Pt. Denies Any Pain Peripheral Nerve Block: Patient did not receive a nerve block
--- NOTE | 2023-05-03 17:22 | PGE_ITS ---
Date of Service Date of service: 05/03/23 Time of Service: 17:23 Assessment and Plan Assessment and plan (1) Acute appendicitis: Status: Acute Assessment and plan: Bette is doing well after her laparoscopic appendectomy. She is up and walking. Pain is tolerable. Continue on Zosyn IV Appendix was necrotic but not yet ruptured. If still has leukocytosis tomorrow but otherwise looks good then maybe will d/c on antibiotics for 5 days. We will reassess tomorrow. Subjective Subjective Interval history since last seen: I saw Bette after surgery. She is up and walking around the room. She is feeling better. Her abdominal pain has improved. Exam Const General: comfortable and no acute distress Resp Effort & Inspection: normal respiratory effort GI Inspection: incision (c/d/i) Objective Last Vital Signs Temp 98.8 F 05/03/23 14:35 Pulse 65 05/03/23 14:35 Resp 17 05/03/23 14:35 BP 102/45 L 05/03/23 14:35 Pulse Ox 97 05/03/23 14:35 Laboratory Results - last 24 hr 05/03/23 05/03/23 05/03/23 08:25 08:25 08:29 WBC 18.68 H RBC 4.14 Hgb 13.3 Hct 38.0 MCV 92 MCH 32.1 MCHC 35.0 RDW 12.4 Plt Count 324 MPV 9.1 Immature Gran % 0.5 Neutrophils % 82.1 Lymphocytes % 7.0 Monocytes % 10.1 Eosinophils % 0.0 Basophils % 0.3 Nucleated RBC % 0.0 Absolute Neutrophils 15.34 H Absolute Lymphocytes 1.31 Absolute Monocytes 1.89 H Absolute Eosinophils 0.00 Absolute Basophils 0.06 RBC Morphology Normal Sodium 130 L Potassium 3.8 Chloride 96 L Carbon Dioxide 25.0 Anion Gap 9.0 BUN 11 Creatinine 0.7 Est GFR (CKD-EPI 2020) 97.72 Glucose 140 H Calcium 9.3 Magnesium 1.8 Total Bilirubin 0.9 AST 22 ALT 27 Alkaline Phosphatase 76 Total Protein 7.5 Albumin 3.6 Lipase 29 Urine Color Yellow Urine Clarity Clear Urine pH 6.5 Ur Specific [place] >= 1.030 H Urine Protein 100 H Urine Ketones 40 H Urine Blood Small H Urine Nitrite Negative Urine Bilirubin Small H Urine Urobilinogen 0.2 Ur Leukocyte Esterase Negative Urine RBC 3-5 H Urine WBC 0-2 Ur Epithelial Cells Rare Urine Crystals Few Amorphous Urine Bacteria Negative Urine Casts Negative Urine Mucus Trace Ur Culture Indicated? No Urine Glucose Negative COVID-19 Source SARS-CoV-2 (PCR) 05/03/23 10:15 WBC RBC Hgb Hct MCV MCH MCHC RDW Plt Count MPV Immature Gran % Neutrophils % Lymphocytes % Monocytes % Eosinophils % Basophils % Nucleated RBC % Absolute Neutrophils Absolute Lymphocytes Absolute Monocytes Absolute Eosinophils Absolute Basophils RBC Morphology Sodium Potassium Chloride Carbon Dioxide Anion Gap BUN Creatinine Est GFR (CKD-EPI 2020) Glucose Calcium Magnesium Total Bilirubin AST ALT Alkaline Phosphatase Total Protein Albumin Lipase Urine Color Urine Clarity Urine pH Ur Specific [place] Urine Protein Urine Ketones Urine Blood Urine Nitrite Urine Bilirubin Urine Urobilinogen Ur Leukocyte Esterase Urine RBC Urine WBC Ur Epithelial Cells Urine Crystals Urine Bacteria Urine Casts Urine Mucus Ur Culture Indicated? Urine Glucose COVID-19 Source Nasal/Nares SARS-CoV-2 (PCR) Negative PAWSS Have you Been Recently Intoxicated or Drunk Within the Last 30 days?: No Have you Ever Experienced Previous Episodes of Alcohol Withdrawal?: No Have you ever Experienced Withdrawal Seizures?: No Have you ever Experienced Delirium Tremens(DT)s?: No Have you ever undergone Alcohol Rehabilitation Treatment (i.e, inpt ot outpatient treatment programs)?: No Have you ever Experienced Blackouts?: No Have you ever Combined Alcohol with other Downers within the last 90 days?: No Have you ever Combined Alcohol with any other Substance of Abuse during the last 90 days?: No Result: 0 Time Spent with Patient Time Spent with Patient: <25 minutes Time was spent: counseling the patient
[2023-05-04] MEDS: PIPERACILLIN/TAZO 3.375 GM in Normal Saline 50 ML IVPB ×3 (05:13→17:55)
[2023-05-04 07:00] LABS: Abs Immature Grans 0.11 10^3/uL (0.0-0.06); Absolute Lymphocyte Count 1.84 10^3/uL (1.2-3.4); Absolute Monocyte Count 1.43 10^3/uL (0.1-0.8); Basophils % 0.2; HCT 33.5 % (36.0-46.0); HGB 11.4 g/dL (11.2-15.7); Immature Grans % 0.6; Lymphocytes % 10.8; MCH 31.9 pg (27.0-33.0); MCV 94 fL (80-95); MPV 9.9 fL (8.0-11.0); Monocytes % 8.4; Platelet Count 262 10^3/uL (130-400); RBC 3.57 10^6/uL (3.93-5.22); RDW 13.1 % (11.7-14.6); RDW-SD 45.5 fL; WBC 17.07 10^3/uL (4.4-10.8)
[2023-05-04 07:04] LABS: Absolute Basophil Count 0.03 10^3/uL (0.0-0.2); Absolute Neutrophil Count 13.66 10^3/uL (1.2-6.7)
[2023-05-04 07:10] VITALS: BP 107/64; PULSE 62; RESP 22; TEMP 36.9; O2SAT 96
--- NOTE | 2023-05-04 07:14 | W.PM.DS.N ---
Date of service: 05/04/23 DS: Diagnosis Discharge Diagnosis (1) Acute appendicitis: Status: Acute Discharge Plan Disposition Condition: Stable Condition: Good Discharge Details Reason For Visit: Acute Necrotic Appendicitis Admit Date/Time: 05/03/23 13:43 Admit Provider: Cat Stanton Attending Provider: Cat Stanton Primary Care Provider: Shabbir Nash Hospital Course Hospital Course: Bette is 62 years old. She comes to the hospital with abdominal pain, and underwent a CAT scan that demonstrated acute appendicitis. She was brought to the operating room for laparoscopic appendectomy. She tolerated this well. White blood cell count was improved postoperatively, she was discharged home. Home Meds and New Rx's Prescriptions: No Action glucosamine sulfate 1,000 mg capsule 1,000 mg PO DAILY Rx Instructions: administer with meals multivitamin [Daily Multi-Vitamin] 1 EACH tablet 1 ea PO DAILY flaxseed oil 1,000 MG capsule 1,000 mg PO DAILY cholecalciferol (vitamin D3) [Vitamin D3] 2,000 UNIT capsule 2,000 unit PO DAILY Citracal Plus Bone Density 1 EACH tablet 1 ea PO DAILY Benefiber Sugar Free (dextrin) 236 GM powder 236 g PO DAILY epinephrine [EpiPen 2-Carlin] 0.3 mg/0.3 mL auto-injector 0.3 mg IM ONCE Rx Instructions: as a single dose; may repeat once Discharge Instructions Instructions: Laparoscopic Appendectomy (DC) Activity:: Activity as Tolerated Equipment/Supplies:: No Equipment Needed Diet:: As Tolerated DS: Data Vitals/I&O Vitals and I&O: Vital Signs Temperature 99.3 F 05/03/23 23:24 Temperature Source Tympanic 05/03/23 23:24 Pulse 78 05/03/23 23:24 Pulse Rhythm Regular 05/03/23 23:40 Pulse 76 05/03/23 11:31 Respiratory Rate 16 05/03/23 23:24 Respiratory Effort Normal 05/03/23 23:40 Respiratory Depth Normal 05/03/23 23:40 Respiratory Pattern Normal 05/03/23 23:40 Blood Pressure 113/64 05/03/23 23:24 Blood Pressure Mean 73 05/03/23 11:31 Blood Pressure Position Supine 05/03/23 08:32 Pulse Oximetry 97 05/03/23 23:24 Oxygen Delivery Method Room Air 05/03/23 23:24 Oxygen Flow Rate 0 10/04/23 23:24 Pain Level 0 05/03/23 23:24 Comment Provider notified 500 mL NS bolus ordered 05/03/23 10:39 Intake & Output 05/03/23 05/03/23 05/04/23 11:59 23:59 11:59 Intake Total 1510 / 2525 1015 / 2525 50 / 50 Balance 1510 / 2525 1015 / 2525 50 / 50 Weight 127 lb 126 lb 15.992 oz Intake: IV 1510 / 2285 775 / 2285 50 / 50 Oral 240 / 240 Other: Urine Color Yellow Urine Appearance Clear Comment declined toileting at 11:24pm states she went at 8. Emesis Description None Data Completed and Pending Labs on day of discharge: Labs from last 24 hours 05/04/23 05/04/23 05/03/23 06:05 06:05 10:15 WBC 17.07 H RBC 3.57 L Hgb 11.4 Hct 33.5 L MCV 94 MCH 31.9 MCHC 34.0 RDW 13.1 Plt Count 262 MPV 9.9 Immature Gran % 0.6 Neutrophils % 80.0 Lymphocytes % 10.8 Monocytes % 8.4 Eosinophils % 0.0 Basophils % 0.2 Nucleated RBC % 0.0 Absolute Neutrophils 13.66 H Absolute Lymphocytes 1.84 Absolute Monocytes 1.43 H Absolute Eosinophils 0.00 Absolute Basophils 0.03 RBC Morphology Sodium Pending Potassium Pending Chloride Pending Carbon Dioxide Pending Anion Gap Pending BUN Pending Creatinine Pending Est GFR (CKD-EPI 2020) Pending Glucose Pending Calcium Pending Magnesium Total Bilirubin AST ALT Alkaline Phosphatase Total Protein Albumin Lipase Urine Color Urine Clarity Urine pH Ur Specific [place] Urine Protein Urine Ketones Urine Blood Urine Nitrite Urine Bilirubin Urine Urobilinogen Ur Leukocyte Esterase Urine RBC Urine WBC Ur Epithelial Cells Urine Crystals Urine Bacteria Urine Casts Urine Mucus Ur Culture Indicated? Urine Glucose COVID-19 Source Nasal/Nares SARS-CoV-2 (PCR) Negative 05/03/23 05/03/23 05/03/23 08:29 08:25 08:25 WBC 18.68 H RBC 4.14 Hgb 13.3 Hct 38.0 MCV 92 MCH 32.1 MCHC 35.0 RDW 12.4 Plt Count 324 MPV 9.1 Immature Gran % 0.5 Neutrophils % 82.1 Lymphocytes % 7.0 Monocytes % 10.1 Eosinophils % 0.0 Basophils % 0.3 Nucleated RBC % 0.0 Absolute Neutrophils 15.34 H Absolute Lymphocytes 1.31 Absolute Monocytes 1.89 H Absolute Eosinophils 0.00 Absolute Basophils 0.06 RBC Morphology Normal Sodium 130 L Potassium 3.8 Chloride 96 L Carbon Dioxide 25.0 Anion Gap 9.0 BUN 11 Creatinine 0.7 Est GFR (CKD-EPI 2020) 97.72 Glucose 140 H Calcium 9.3 Magnesium 1.8 Total Bilirubin 0.9 AST 22 ALT 27 Alkaline Phosphatase 76 Total Protein 7.5 Albumin 3.6 Lipase 29 Urine Color Yellow Urine Clarity Clear Urine pH 6.5 Ur Specific [place] >= 1.030 H Urine Protein 100 H Urine Ketones 40 H Urine Blood Small H Urine Nitrite Negative Urine Bilirubin Small H Urine Urobilinogen 0.2 Ur Leukocyte Esterase Negative Urine RBC 3-5 H Urine WBC 0-2 Ur Epithelial Cells Rare Urine Crystals Few Amorphous Urine Bacteria Negative Urine Casts Negative Urine Mucus Trace Ur Culture Indicated? No Urine Glucose Negative COVID-19 Source SARS-CoV-2 (PCR) PFSH All Active Problems Acute appendicitis (Acute) Postmenopausal (Acute) Medical History Basal cell carcinoma of skin left shoulder Cervical polyp (01/26/18) seasonal affective disorder usually winter months. Rx over winter x 1 no issues at this time Surgical History History of laparoscopic appendectomy (~04/2023) History of tubal ligation (~07/31/94) Family History Mother , 83 Osteoporosis Lung cancer Father , 68 Diabetes Heart disease Hyperlipidemia Hypertension Stroke Substance use disorder Sister Alcohol use disorder Sister Diabetes Brother Alcohol use disorder Brother No problems noted. Brother Alcohol use disorder Depression Brother Heart disease Diabetes Depression Son Hypoglycemia Daughter Depression Social History Smoking/Tobacco Use Status: Never Second Hand Exposure: Yes Smoking risk assessment performed?: Yes Alcohol Intake: current Alcohol Intake frequency: a few times a week Alcohol type: beer and wine Substance use type: does not use Caregiver/Support person: No Household members: significant other Housing: house Communication Needs: Corrective Lenses Do you need help understanding health information?: Rarely Pets and animals: Yes Pets and animals: cat(s) Sexually active: Yes Do you think of yourself as: straight/heterosexual Current gender identity: female What is your relationship status?: living with partner How often do you talk on the phone with friends or family?: three or more times per week How often do you get together with friends or relatives?: three or more times per week How often do you attend rastafarian or jainism services?: 1-3 times per year Do you belong to any clubs or organized social groups?: yes Panel score (0-1 are the most socially isolated patients): 3 What type of physical activity do you participate in: walking, weight lifting and running Duration: 60-90 minutes/day Frequency: 3-4 times per week Victorina/Congregational: Spiritual Special victorina needs: No Seatbelt use: always Helmet use: Yes Helmet use: always Drive intox or ride w/intox pack train driver: No Do you feel safe at home: Yes Do you feel safe in your relationship?: Yes Female Reproductive History Menstrual Menopause type: natural (2018) History History 2 Para 2 Hx # Term Pregnancies Multiple births Hx # Pregnancies Ectopic pregnancies AB induced Hx Number of Living Children AB spontaneous
[2023-05-04 07:15] LABS: Anion Gap 8.9 mmol/L (3-11); BUN 10 mg/dL (7-18); CO2 24.1 mmol/L (21.0-32.0); CREATININE 0.7 mg/dL (0.55-1.02); Calcium 8.7 mg/dL (8.5-10.1); Chloride 106 mmol/L (98-107); Estimated GFR 97.72 (mL/min/1.73m2); Glucose 105 mg/dL (74-106); Potassium 3.4 mmol/L (3.5-5.1); Sodium 139 mmol/L (136-145)
--- NOTE | 2023-05-04 07:43 | PGE_ITS ---
Date of Service Date of service: 05/04/23 Time of Service: 07:43 Assessment and Plan Assessment and plan (1) Acute appendicitis: Status: Acute Assessment and plan: Postop day #1 status post laparoscopic appendectomy Continue on Zosyn IV, Appendix was necrotic but not yet ruptured. Leukocytosis continues, slightly decreased from yesterday however still elevated at 17.07 Regular diet Encouraged sitting in the chair and ambulation throughout the morning. We will discharge home later today on p.o. antibiotics given her continued elevated white count Subjective Subjective Interval history since last seen: Patient reports she is feeling much better today. She describes that she is having some abdominal soreness however she does not describe this as pain. She states that she has feels significantly improved compared to yesterday. She denies having any fevers, chills or night sweats. Exam Const General: cooperative, healthy appearing and comfortable Orientation: alert and oriented x3 Resp Effort & Inspection: normal respiratory effort, no audible wheezes and no cough GI Inspection: incision (With skin affix in place) Palpation: soft, no guarding and tender (Right lower quadrant) Objective Last Vital Signs Temp 37.4 C 05/03/23 23:24 Pulse 78 05/03/23 23:24 Resp 16 05/03/23 23:24 BP 113/64 05/03/23 23:24 Pulse Ox 97 05/03/23 23:24 Laboratory Results - last 24 hr 05/03/23 05/03/23 05/03/23 08:25 08:25 08:29 WBC 18.68 H RBC 4.14 Hgb 13.3 Hct 38.0 MCV 92 MCH 32.1 MCHC 35.0 RDW 12.4 Plt Count 324 MPV 9.1 Immature Gran % 0.5 Neutrophils % 82.1 Lymphocytes % 7.0 Monocytes % 10.1 Eosinophils % 0.0 Basophils % 0.3 Nucleated RBC % 0.0 Absolute Neutrophils 15.34 H Absolute Lymphocytes 1.31 Absolute Monocytes 1.89 H Absolute Eosinophils 0.00 Absolute Basophils 0.06 RBC Morphology Normal Sodium 130 L Potassium 3.8 Chloride 96 L Carbon Dioxide 25.0 Anion Gap 9.0 BUN 11 Creatinine 0.7 Est GFR (CKD-EPI 2020) 97.72 Glucose 140 H Calcium 9.3 Magnesium 1.8 Total Bilirubin 0.9 AST 22 ALT 27 Alkaline Phosphatase 76 Total Protein 7.5 Albumin 3.6 Lipase 29 Urine Color Yellow Urine Clarity Clear Urine pH 6.5 Ur Specific [place] >= 1.030 H Urine Protein 100 H Urine Ketones 40 H Urine Blood Small H Urine Nitrite Negative Urine Bilirubin Small H Urine Urobilinogen 0.2 Ur Leukocyte Esterase Negative Urine RBC 3-5 H Urine WBC 0-2 Ur Epithelial Cells Rare Urine Crystals Few Amorphous Urine Bacteria Negative Urine Casts Negative Urine Mucus Trace Ur Culture Indicated? No Urine Glucose Negative COVID-19 Source SARS-CoV-2 (PCR) 05/03/23 05/04/23 05/04/23 10:15 06:05 06:05 WBC 17.07 H RBC 3.57 L Hgb 11.4 Hct 33.5 L MCV 94 MCH 31.9 MCHC 34.0 RDW 13.1 Plt Count 262 MPV 9.9 Immature Gran % 0.6 Neutrophils % 80.0 Lymphocytes % 10.8 Monocytes % 8.4 Eosinophils % 0.0 Basophils % 0.2 Nucleated RBC % 0.0 Absolute Neutrophils 13.66 H Absolute Lymphocytes 1.84 Absolute Monocytes 1.43 H Absolute Eosinophils 0.00 Absolute Basophils 0.03 RBC Morphology Sodium 139 Potassium 3.4 L Chloride 106 Carbon Dioxide 24.1 Anion Gap 8.9 BUN 10 Creatinine 0.7 Est GFR (CKD-EPI 2020) 97.72 Glucose 105 Calcium 8.7 Magnesium Total Bilirubin AST ALT Alkaline Phosphatase Total Protein Albumin Lipase Urine Color Urine Clarity Urine pH Ur Specific [place] Urine Protein Urine Ketones Urine Blood Urine Nitrite Urine Bilirubin Urine Urobilinogen Ur Leukocyte Esterase Urine RBC Urine WBC Ur Epithelial Cells Urine Crystals Urine Bacteria Urine Casts Urine Mucus Ur Culture Indicated? Urine Glucose COVID-19 Source Nasal/Nares SARS-CoV-2 (PCR) Negative PAWSS Have you Been Recently Intoxicated or Drunk Within the Last 30 days?: No Have you Ever Experienced Previous Episodes of Alcohol Withdrawal?: No Have you ever Experienced Withdrawal Seizures?: No Have you ever Experienced Delirium Tremens(DT)s?: No Have you ever undergone Alcohol Rehabilitation Treatment (i.e, inpt ot outpatient treatment programs)?: No Have you ever Experienced Blackouts?: No Have you ever Combined Alcohol with other Downers within the last 90 days?: No Have you ever Combined Alcohol with any other Substance of Abuse during the last 90 days?: No Result: 0 Time Spent with Patient Time Spent with Patient: <25 minutes Time was spent: preparing to see the patient(eg.review tests), indepentently interpreting results and counseling the patient
[2023-05-04] MEDS: Enoxaparin 40 MG/0.4 ML SYR SC (07:58)
[2023-05-04] MEDS: Psyllium PKT 1 EACH PO (07:58)
[2023-05-04] MEDS: Acetaminophen 325 MG TAB 650 MG PO ×2 (10:24→19:52)
--- NOTE | 2023-05-04 10:45 | INITIAL_ITS ---
Date of service: 05/04/23 Time of Service: 10:46 Care Management Initial Assmt Initial Assessment REASON FOR HOSPITALIZATION:: Acute Necrotic Appendicitis PREVIOUS FUNCTIONAL STATUS/SOCIAL/FAMILY SUPPORTS:: Bette lives in [place] with her partner Josesito. 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 She states she has lots of family and friends who reside locally and are supportive of her. Bette drives and is independent with her ADLs at baseline. CURRENT FUNCTIONAL STATUS:: Bette is walking around her room when CM stops by. Her brother Clifford, who is visiting from [place], is present in the room. Bette is pleasant and readily engages in conversation. She states she is feeling much better and hopes to be returning home later on today. She likely will be discharged home on oral antibiotics as her white blood cell count is improving but remains high. ADVANCE DIRECTIVES:: On file; patient's son Seamus Sung is appointed as Health Care Agent. Has patient been provided with info about the portal/API?: Yes Did the patient sign up for the portal?: Yes (Previously enrolled.) CODE STATUS:: Full Code INSURANCE COVERAGE / FINANCIAL ISSUES:: [facility] CURRENT HOME/COMMUNITY SERVICES/EQUIPMENT:: None. PRIMARY CARE PHYSICIAN:: Shabbir Nash NP POTENTIAL DISCHARGE NEEDS:: Follow up appointments with [facility] and [facility] and plan of care. PATIENT/FAMILY EDUCATION NEEDS:: Review of discharge instructions including medications, limitations and follow up plan of care; discuss Ask Me Three. ANTICIPATED BARRIERS TO DISCHARGE:: None identified at this time. TRANSPORTATION:: Via private vehicle with senior marketing associate [email or web address]. PLAN:: Bette will likely discharge home with no services when medically cleared by provider. She will follow up with her PCP, surgeon and plan of care as instructed. She will be transported home by her senior marketing associate Josesito via private vehicle when ready. CM will continue to follow. PFSH All Active Problems Acute appendicitis (Acute) Postmenopausal (Acute) Medical History Basal cell carcinoma of skin left shoulder Cervical polyp (01/26/18) seasonal affective disorder usually winter months. Rx over winter x 1 no issues at this time Surgical History History of laparoscopic appendectomy (~04/2023) History of tubal ligation (~07/31/94) Family History Mother , 83 Osteoporosis Lung cancer Father , 68 Diabetes Heart disease Hyperlipidemia Hypertension Stroke Substance use disorder Sister Alcohol use disorder Sister Diabetes Brother Alcohol use disorder Brother No problems noted. Brother Alcohol use disorder Depression Brother Heart disease Diabetes Depression Son Hypoglycemia Daughter Depression Social History Smoking/Tobacco Use Status: Never Second Hand Exposure: Yes Smoking risk assessment performed?: Yes Alcohol Intake: current Alcohol Intake frequency: a few times a week Alcohol type: beer and wine Substance use type: does not use Caregiver/Support person: No Household members: significant other Housing: house Communication Needs: Corrective Lenses Do you need help understanding health information?: Rarely Pets and animals: Yes Pets and animals: cat(s) Sexually active: Yes Do you think of yourself as: straight/heterosexual Current gender identity: female What is your relationship status?: living with partner How often do you talk on the phone with friends or family?: three or more times per week How often do you get together with friends or relatives?: three or more times per week How often do you attend religious or sabianism services?: 1-3 times per year Do you belong to any clubs or organized social groups?: yes Panel score (0-1 are the most socially isolated patients): 3 What type of physical activity do you participate in: walking, weight lifting and running Duration: 60-90 minutes/day Frequency: 3-4 times per week Victorina/Anabaptism: Spiritual Special victorina needs: No Seatbelt use: always Helmet use: Yes Helmet use: always Drive intox or ride w/intox local truck driver: No Do you feel safe at home: Yes Do you feel safe in your relationship?: Yes Female Reproductive History Menstrual Menopause type: natural (2017) History History 2 Para 2 Hx # Term Pregnancies Multiple births Hx # Pregnancies Ectopic pregnancies AB induced Hx Number of Living Children AB spontaneous
[2023-05-04 15:04] VITALS: BP 112/69; PULSE 59; RESP 16; TEMP 35.8; O2SAT 100
--- NOTE | 2023-05-04 16:33 | CHAPLAIN ---
Bette was resting in bed with her partner when I visited. She said she is feeling well and is hoping to be discharged this afternoon. I explained my role and offered support.
[2023-05-05] MEDS: Normal Saline 500 ML 30 ML IV
[2023-05-05] MEDS: Normal Saline Flush 10 ML SYR IVP ×2 (00:01→05:27)
[2023-05-05] MEDS: PIPERACILLIN/TAZO 3.375 GM in Normal Saline 50 ML IVPB ×2 (00:01→05:27)
[2023-05-05 06:34] LABS: HCT 29.9 % (36.0-46.0); HGB 10.1 g/dL (11.2-15.7); MCH 31.9 pg (27.0-33.0); MCHC 33.8 % (32.0-36.0); MCV 94 fL (80-95); MPV 9.8 fL (8.0-11.0); Platelet Count 231 10^3/uL (130-400); RBC 3.17 10^6/uL (3.93-5.22); RDW 13.2 % (11.7-14.6); RDW-SD 46.1 fL; WBC 6.86 10^3/uL (4.4-10.8)
[2023-05-05 07:05] VITALS: BP 111/65; PULSE 56; RESP 18; TEMP 36.8; O2SAT 97
[2023-05-05 07:06] LABS: ALT 45 U/L (14-59); AST 35 U/L (15-37); Albumin 2.4 g/dL (3.4-5.0); Alkaline Phosphatase 62 U/L (46-116); Anion Gap 6.8 mmol/L (3-11); BUN 13 mg/dL (7-18); Bilirubin, Total 0.4 mg/dL (0.2-1.0); CO2 26.2 mmol/L (21.0-32.0); CREATININE 0.8 mg/dL (0.55-1.02); Calcium 8.8 mg/dL (8.5-10.1); Chloride 106 mmol/L (98-107); Estimated GFR 83.26 (mL/min/1.73m2); Glucose 96 mg/dL (74-106); Potassium 3.4 mmol/L (3.5-5.1); Sodium 139 mmol/L (136-145); Total Protein 5.8 g/dL (6.4-8.2)
[2023-05-05] MEDS: Enoxaparin 40 MG/0.4 ML SYR SC (08:31)
[2023-05-05] MEDS: Psyllium PKT 1 EACH PO (08:32)
--- NOTE | 2023-05-05 09:33 | DSE_ITS ---
Date of service: 05/05/23 Time of Service: 09:33 DS: Diagnosis Discharge Diagnosis (1) Acute appendicitis: Status: Acute Discharge Plan Disposition Patient Disposition: Home Condition: Good Discharge Details Reason For Visit: Acute Necrotic Appendicitis Admit Date/Time: 05/03/23 13:43 Admit Provider: Cat Stanton Attending Provider: Cat Stanton Primary Care Provider: Shabbir Nash Hospital Course Hospital Course: Bette is 62 years old. She comes to the hospital with abdominal pain, and underwent a CAT scan that demonstrated acute appendicitis. She was brought to the operating room for laparoscopic appendectomy. She tolerated this well. White blood cell count was improved postoperatively, she was discharged home. Home Meds and New Rx's Prescriptions: New tramadol 50 mg tablet 50 mg PO Q4H PRNQty: 10 0RF Continued glucosamine sulfate 1,000 mg capsule 1,000 mg PO DAILY Rx Instructions: administer with meals multivitamin [Daily Multi-Vitamin] 1 EACH tablet 1 ea PO DAILY flaxseed oil 1,000 MG capsule 1,000 mg PO DAILY cholecalciferol (vitamin D3) [Vitamin D3] 2,000 UNIT capsule 2,000 unit PO DAILY Citracal Plus Bone Density 1 EACH tablet 1 ea PO DAILY Benefiber Sugar Free (dextrin) 236 GM powder 236 g PO DAILY epinephrine [EpiPen 2-Carlin] 0.3 mg/0.3 mL auto-injector 0.3 mg IM ONCE Rx Instructions: as a single dose; may repeat once Discharge Instructions Instructions: Laparoscopic Appendectomy (DC) Additional Instructions: Care afte Surgery -Pain control: ?For the first 72 hours after surgery, take your pain meds continuously, and not just when you have pain.?? Alternate Tylenol 1000mg by mouth every 8 hours, and Ibuprofen 600mg every 6 hours.? Make sure you take ibuprofen with food and not on an empty stomach.? ??Use the tramadol for breakthrough pain- pain that is greater than a 7. ?- Use ICE! Ice really helps to keep the swelling down, and swelling causes pain. ??Twenty minutes on, and then off, continuously for the first 72hours.? After the first 72hrs, you can just use the Tylenol, ibuprofen or Celebrex, and ice, when you have pain.?? If you are taking narcotic pain medication, follow the instructions on the label and do not drive. Pain medications can make you very constipated. Make sure you are moving your bowels daily. If not, take Miralax. ? Use an ice bag for the first 72 hours. This helps to decrease swelling, which causes pain. It is normal to be more sore/painful and swollen towards the end of the day and first thing in the morning. ? Use Miralax or prune juice to prevent constipation (this is a particular side effect of pain medication and anesthesia). Do not allow yourself to become constipated. ? Start out eating very small, bland amounts of food. Do not take pain pills on an empty stomach. - You will notice purple discoloration around the incisions.? This is the ?skin glue?.? This will wear off on its own.? It is OK to shower after 24hrs.? You do not need to cover the incisions. -You should walk frequently, gradually, increasing the distance. You may climb stairs, just go slowly. ? Do not go swimming or sit in a hot tub for two weeks. ? There are no stitches to remove. ? Do not drive your car x72hrs and then only if you have no pain and can move freely. Do not drive if you are taking pain narcotic pain medications. ? You may resume sexual activity whenever pain and soreness subside, usually in 2 weeks. ? Do no lift anything over 5 lbs. for two weeks. ? You may return to work in one week, or when you feel able, provided you do not have to do any heavy lifting or prolonged standing. ? You should return to Dr. Stanton's office for a post-op appointment about two weeks after surgery.? If there is not, please call the Surgical [facility] at: [phone] to schedule an appointment. 05/18 at 2:00 pm My Medications for pain and nausea are: Tylenol/ibuprofen ?and ultram- for severe pain When to Call the Office: ? If the incision becomes red or swollen, or there is more than a little maria g baptiste from it. ? If you develop a temperature higher than 100.5 F. ? Vomiting and can?t keep fluids down Activity:: Activity as Tolerated Equipment/Supplies:: No Equipment Needed Diet:: As Tolerated DS: Summary Time Spent with Patient providing and/or coordinating discharge services: Less than 30 minutes Status at Discharge Functional status at discharge: independent ambulation Overall status at discharge: patient is progressing back to baseline Mental Status: mental status grossly normal Speech and Movement: speech and movement normal Mood: congruent mood Affect: normal affect Exam Psych Mental Status: mental status grossly normal Speech and Movement: speech and movement normal Mood: congruent mood Affect: normal affect DS: Data Vitals/I&O Vitals and I&O: Vital Signs Temperature 36.8 C 05/05/23 07:05 Temperature Source Tympanic 05/05/23 07:05 Pulse 56 L 05/05/23 07:05 Pulse Rhythm Regular 05/05/23 08:35 Pulse 76 05/03/23 11:31 Respiratory Rate 18 05/05/23 07:05 Respiratory Effort Normal, Non-Labored 05/05/23 08:35 Respiratory Depth Normal 05/05/23 08:35 Respiratory Pattern Normal 05/05/23 08:35 Blood Pressure 111/65 05/05/23 07:05 Blood Pressure Mean 73 05/03/23 11:31 Blood Pressure Position Supine 05/03/23 08:32 Pulse Oximetry 97 05/05/23 07:05 Oxygen Delivery Method Room Air 05/05/23 07:05 Oxygen Flow Rate 0 05/05/23 07:05 Pain Level 0 05/05/23 07:05 Comment Provider notified 500 mL NS bolus ordered 05/03/23 10:39 Intake & Output 05/04/23 05/04/23 05/05/23 11:59 23:59 11:59 Intake Total 100 / 200 100 / 200 80 / 80 Balance 100 / 200 100 / 200 80 / 80 Intake: IV 100 / 200 100 / 200 80 / 80 Other: Urine Appearance Clear Clear Clear Urine Odor None Comment pt is independent in room and toilets self as needed. pt denies any issues with GI/ Stool Size Moderate Small Stool Characteristics Soft Soft Voiding Methods Toilet Toilet Data Completed and Pending Labs on day of discharge: Labs from last 24 hours 05/05/23 05/05/23 05/05/23 05:30 05:30 05:30 WBC 6.86 RBC 3.17 L Hgb 10.1 L Hct 29.9 L MCV 94 MCH 31.9 MCHC 33.8 RDW 13.2 Plt Count 231 MPV 9.8 Sodium 139 Potassium 3.4 L Chloride 106 Carbon Dioxide 26.2 Anion Gap 6.8 BUN 13 Creatinine 0.8 Est GFR (CKD-EPI 2020) 83.26 Glucose 96 Calcium 8.8 Total Bilirubin 0.4 AST 35 ALT 45 Alkaline Phosphatase 62 Total Protein 5.8 L Albumin 2.4 L 25-OH Vitamin D Total 37.0 PFSH All Active Problems Acute appendicitis (Acute) Postmenopausal (Acute) Medical History Basal cell carcinoma of skin left shoulder Cervical polyp (01/26/18) seasonal affective disorder usually winter months. Rx over winter x 1 no issues at this time Surgical History History of laparoscopic appendectomy (~04/2023) History of tubal ligation (~07/31/94) Family History Mother , 83 Osteoporosis Lung cancer Father , 68 Diabetes Heart disease Hyperlipidemia Hypertension Stroke Substance use disorder Sister Alcohol use disorder Sister Diabetes Brother Alcohol use disorder Brother No problems noted. Brother Alcohol use disorder Depression Brother Heart disease Diabetes Depression Son Hypoglycemia Daughter Depression Social History Smoking/Tobacco Use Status: Never Second Hand Exposure: Yes Smoking risk assessment performed?: Yes Alcohol Intake: current Alcohol Intake frequency: a few times a week Alcohol type: beer and wine Substance use type: does not use Caregiver/Support person: No Household members: significant other Housing: house Communication Needs: Corrective Lenses Do you need help understanding health information?: Rarely Pets and animals: Yes Pets and animals: cat(s) Sexually active: Yes Do you think of yourself as: straight/heterosexual Current gender identity: female What is your relationship status?: living with partner How often do you talk on the phone with friends or family?: three or more times per week How often do you get together with friends or relatives?: three or more times per week How often do you attend religious or roman catholic services?: 1-3 times per year Do you belong to any clubs or organized social groups?: yes Panel score (0-1 are the most socially isolated patients): 3 What type of physical activity do you participate in: walking, weight lifting and running Duration: 60-90 minutes/day Frequency: 3-4 times per week Victorina/Voodoo: Spiritual Special victorina needs: No Seatbelt use: always Helmet use: Yes Helmet use: always Drive intox or ride w/intox substitute bus driver: No Do you feel safe at home: Yes Do you feel safe in your relationship?: Yes Female Reproductive History Menstrual Menopause type: natural (2017) History History 2 Para 2 Hx # Term Pregnancies Multiple births Hx # Pregnancies Ectopic pregnancies AB induced Hx Number of Living Children AB spontaneous Time Spent with Patient Time Spent with Patient: <45 minutes Time was spent: preparing to see the patient(eg.review tests), obtaining and/or reviewing separately otained hiistory, ordering medications,tests, procedures, referring, communicating with other health medical care administrator, indepentently interpreting results, counseling the patient and care coordination
--- NOTE | 2023-05-05 09:33 | W.PM.PROGNOT ---
Date of Service Date of service: 05/05/23 Time of Service: 09:33 Assessment and Plan Assessment and plan (1) Acute appendicitis: Status: Acute Assessment and plan: Postop day #2 from laparoscopic appendectomy. White count has normalized. She is not having any fevers. She is tolerating a regular diet. She is up walking around. She has no dysuria. Patient will be discharged home. We discussed wound care, activities, diet, and warning signs. She will follow-up in clinic in 2 weeks. She does not require further antibiotics. We discussed a multimodality pain plan. We discussed warning signs. If she has any questions or concerns she should call the clinic or come to the ER after hours. Patient is discharged in stable and satisfactory condition. See her discharge summary. Subjective Subjective Interval history since last seen: Pt is doing well. no headaches. No CP or SOB. no productive cough. no dysuria. no leg pain or swelling. She has not had any fever or chills. She is tolerating a regular diet. She has been up walking around. She did move her bowels. She is having minimal pain. Exam Narrative Exam Narrative: PHYSICAL EXAM GENERAL APPEARANCE: Alert, healthy appearance, oriented, x 3,? in no acute distress HYDRATION: Well hydrated HEAD, EYES, EARS, NECK, THROAT: Head is normocephalic, pupils equal, round, reactive to light and accommodation, ocular movement intact, sclera clear and no jaundice. ?Dentition intact. No sore throat.? No jaw pain. No thrush LUNGS: normal respiration/normal chest excursion. ?Clear to auscultation bilaterally. ?No wheeze. ?HEART: Regular rate and rhythm. no murmurs EXTREMITY: No edema or cyanosis.? no leg pain, redness, swelling.? ABDOMEN: soft and non-tender to palpation.? Normal bowel sounds.? Objective Last Vital Signs Temp 36.8 C 05/05/23 07:05 Pulse 56 L 05/05/23 07:05 Resp 18 05/05/23 07:05 BP 111/65 05/05/23 07:05 Pulse Ox 97 05/05/23 07:05 Laboratory Results - last 24 hr 05/05/23 05/05/23 05/05/23 05:30 05:30 05:30 WBC 6.86 RBC 3.17 L Hgb 10.1 L Hct 29.9 L MCV 94 MCH 31.9 MCHC 33.8 RDW 13.2 Plt Count 231 MPV 9.8 Sodium 139 Potassium 3.4 L Chloride 106 Carbon Dioxide 26.2 Anion Gap 6.8 BUN 13 Creatinine 0.8 Est GFR (CKD-EPI 2020) 83.26 Glucose 96 Calcium 8.8 Total Bilirubin 0.4 AST 35 ALT 45 Alkaline Phosphatase 62 Total Protein 5.8 L Albumin 2.4 L 25-OH Vitamin D Total 37.0 PAWSS Have you Been Recently Intoxicated or Drunk Within the Last 30 days?: No Have you Ever Experienced Previous Episodes of Alcohol Withdrawal?: No Have you ever Experienced Withdrawal Seizures?: No Have you ever Experienced Delirium Tremens(DT)s?: No Have you ever undergone Alcohol Rehabilitation Treatment (i.e, inpt ot outpatient treatment programs)?: No Have you ever Experienced Blackouts?: No Have you ever Combined Alcohol with other Downers within the last 90 days?: No Have you ever Combined Alcohol with any other Substance of Abuse during the last 90 days?: No Result: 0 Time Spent with Patient Time Spent with Patient: 25-34 minutes Time was spent: preparing to see the patient(eg.review tests), obtaining and/or reviewing separately otained hiistory, ordering medications,tests, procedures, referring, communicating with other health intensive care unit registered nurse, indepentently interpreting results, counseling the patient and care coordination
--- NOTE | 2023-05-05 10:42 | PDOC.CMDIS ---
Date of service: 05/05/23 Time of Service: 10:42 LACE Index Scoring Tool Questions: Length of Stay (in days): 2 Was the patient admitted via the E.D.?: Yes E.D. Visits: 0 Answers: Total Score: 5 Risk of Readmission: Low Risk Care Management Discharge Plan Reason for Hospitalization: Acute Necrotic Appendicitis Discharge Plan: Bette will return home today with new new services. Her family will drive her home via private vehicle. She will follow up with surgical services and her discharge plan of care. She is happy to be returning home. Patient/Family Education Needs: Review discharge instructions and limitations, discussion of self care needs including ask me three.
[2023-05-05] MEDS: Acetaminophen 325 MG TAB 650 MG PO (11:30)
== END 2023-05-05 11:30 | disposition home or self-care (01) ==
LOC: ER 09:51 → SUR 11:41 → MS 15:01
PROVIDERS: Surgery; Admitting Provider Surgery; Emergency Provider Registered Nurse Emergency; PCP Nurse Practitioner Family; Visit Provider Surgery
PROC: 0DTJ4ZZ Resection of Appendix, Percutaneous Endoscopic Approach (ICD-10-PCS; CPT 44970; principal; 2023-05-03 11:00)
DX: K35.80 Unspecified acute appendicitis (principal); D72.829 Elevated white blood cell count, unspecified; F33.9 Major depressive disorder, recurrent, unspecified
CPT/HCPCS: 44970; 36415; 80048; 80053; 82306; 83690; 85027; 87635; 96361; 96365; 96366; 96372; 96375; 99285; J1650; 74177; 81003; 81015; 83735; 85025; 88304; G0378; J1100; J1885; J2001; J2250; J2405; J2543; J2704

== ENCOUNTER → 2023-10-23 04:04 | Outpatient (CLI) | payer BC, SELFPAY ==
--- NOTE | 2023-10-23 12:00 | DI.MAMMO_ITS ---
Exam(s) MAMMO SCREENING EXAM: MAMMO SCREENING CLINICAL HISTORY: screening TECHNIQUE: Mammograms were interpreted according to the usual protocol including computer analysis w [address] CAD system, tomosynthesis and C-view imaging. COMPARISON: 2013 through 2022 FINDINGS: The breasts are composed of scattered fibroglandular densities, Breast Density category B. No suspicious masses or suspicious microcalcifications are seen. No skin thickening or abnormal axillary lymph nodes are seen. There has been no significant change from prior exams. IMPRESSION: BI-RADS Category 1, Negative mammogram Yearly screening mammography is recommended. Breast Density - Category B, scattered fibroglandular densities. A negative radiographic report should not delay biopsy if a dominant or clinically suspicious mass is present. Up to ten percent of cancers are not identified on mammography. A negative report may reinforce clinical impression. Adenosis and dense breasts may obscure an underlying neoplasm. False positive reports average 6 to 10%. Patient will receive a letter notifying them of these results.
== END ==
PROVIDERS: PCP Nurse Practitioner Family; Visit Provider Nurse Practitioner Women's Health
DX: Z12.31 Encounter for screening mammogram for malignant neoplasm of breast (principal)
CPT/HCPCS: 77063; 77067

== ENCOUNTER 2024-05-13 16:05 | Outpatient (REF) | payer BC, SELFPAY | END 2024-05-13 16:06 | disposition home or self-care (01) | LOC: NCHCN 16:05 | PROVIDERS: PCP Nurse Practitioner Family; Visit Provider Nurse Practitioner Family | DX: N39.0 Urinary tract infection, site not specified (principal); R82.89 Other abnormal findings on cytological and histological examination of urine | CPT/HCPCS: 87086 ==

== ENCOUNTER 2024-11-08 00:18 | Outpatient (CLI) | payer BC, SELFPAY ==
--- NOTE | 2024-11-08 07:45 | DI.MAMMO_ITS ---
Exam(s) MAMMO SCREENING EXAM: MAMMO SCREENING CLINICAL HISTORY: screening, Z12.39 TECHNIQUE: Mammograms were interpreted according to the usual protocol including computer analysis w [employer] CAD system, tomosynthesis and C-view imaging. COMPARISON: 2014 through 2023 FINDINGS: The breasts are composed of scattered fibroglandular densities, Breast Density category B. No suspicious masses or suspicious microcalcifications are seen. No skin thickening or abnormal axillary lymph nodes are seen. There has been no significant change from prior exams. IMPRESSION: BI-RADS Category 1, Negative mammogram Yearly screening mammography is recommended. Breast Density - Category B, scattered fibroglandular densities. A negative radiographic report should not delay biopsy if a dominant or clinically suspicious mass is present. Up to ten percent of cancers are not identified on mammography. A negative report may reinforce clinical impression. Adenosis and dense breasts may obscure an underlying neoplasm. False positive reports average 6 to 10%. Patient will receive a letter notifying them of these results.
== END 2024-11-08 00:38 ==
LOC: DI 00:18
PROVIDERS: PCP Nurse Practitioner Family; Visit Provider Nurse Practitioner Women's Health
DX: Z12.31 Encounter for screening mammogram for malignant neoplasm of breast (principal); R92.323 Mammographic fibroglandular density, bilateral breasts
CPT/HCPCS: 77063; 77067

== ENCOUNTER 2024-12-17 01:22 | Outpatient (CLI) | payer BC, SELFPAY ==
--- NOTE | 2024-12-17 10:30 | DI.DEXA_ITS ---
Exam(s) XR DEXA BONE DENSITY W/WO AMANDA EXAM: XR DEXA BONE DENSITY W/WO AMANDA CLINICAL HISTORY: screening,MENOPAUSAL DISORDER, N95.9 TECHNIQUE: [employer] C densitometer analysis of left hip, lumbar spine and left forearm. Lat eral survey image of the thoracic and lumbar spine. COMPARISON: No exams were available for comparison FINDINGS: Lateral view of the thoracic and lumbar spine shows no evidence of compression fractures. Bone mineral density measurements of the lumbar spine correspond to a total T-score of -1.3, in the mildly osteopenic range. Bone mineral density measurements of the left hip correspond to a total T-score of -2.6, in the oste oporotic range.. The femoral neck T-score is -2.4. Theleft forearm bone mineral density measurements correspond to a T-score of the distal 3rd of 0.9, in the normal range.. IMPRESSION: Normal bone mineral density of the wrist. Osteopenia of the spine and hip
== END 2024-12-17 01:42 ==
LOC: DI 01:22
PROVIDERS: PCP Family Medicine; Visit Provider Family Medicine
DX: Z13.820 Encounter for screening for osteoporosis (principal); N95.9 Unspecified menopausal and perimenopausal disorder; M85.89 Other specified disorders of bone density and structure, multiple sites
CPT/HCPCS: 77080

== ENCOUNTER 2024-12-20 01:50 | Outpatient (CLI) | payer BC, SELFPAY ==
[2024-12-20 12:53] LABS: Calculated LDL 129 mg/dL (<100); Cholesterol 230 mg/dL (<200); HDL Cholesterol 86 mg/dL (>or=50); Triglyceride 78 mg/dL (<150)
== END 2024-12-20 01:51 | disposition home or self-care (01) ==
LOC: LOS 01:51
PROVIDERS: PCP Family Medicine; Visit Provider Family Medicine
DX: Z13.6 Encounter for screening for cardiovascular disorders (principal)
CPT/HCPCS: 36415; 80061

== ENCOUNTER 2025-06-30 16:11 | Outpatient (CLI) | payer BC, SELFPAY ==
--- NOTE | 2025-06-30 14:30 | DI.RAD_ITS ---
Exam(s) XR FINGER RT MIDDLE EXAM: XR FINGER RT MIDDLE CLINICAL HISTORY: eval RMF mass, ulna side of prox phalanx. TECHNIQUE: 2D digital imaging was performed of the right finger. Three views were obtained. PA/AP, oblique, and lateral views were obtained. COMPARISON: No exams were available for comparison FINDINGS: BONES: No acute fracture is present. No bony destructive lesion is seen. No osseous mass is seen. JOINTS: No dislocation present. SOFT TISSUE: No soft tissue calcification is present. IMPRESSION: 1. No evidence of acute fracture or dislocation. 2. No evidence of a soft tissue mass is seen at this time. If there is continued clinical concern, an MRI with and without contrast should be considered for further evaluation. DATA REPOSITORY: RADIATION DOSE DELIVERED:
== END 2025-06-30 16:12 | disposition home or self-care (01) ==
LOC: DIORS 16:11
PROVIDERS: PCP Family Medicine; Visit Provider Student in an Organized Health Care Education/Training Program
DX: M67.441 Ganglion, right hand (principal)
CPT/HCPCS: 73140